=== PATIENT | female | born 1960 | race Caucasian/White ===

== ENCOUNTER 2020-01-19 09:40 | Observation (INO) | payer BC ==
[~2020-01-19] VITALS: Ht 162.6 cm; Wt 89.9 kg
[~2020-01-19 09:40] MED LIST: BACITRACIN OINT 500U/GM, 15 GM ONE; EPINEPHRINE TOPICAL SOLN 1 MG/ML, 30ML ONE; LIDOCAINE 1%-EPI 1:100K, 20ML ONE
[2020-01-19] MEDS ORDERED: CHLORHEXIDINE 15 ML UDC MM STA (10:12)
[2020-01-19] MEDS ORDERED: LACTATED RINGERS 1,000 ML IV SCH (10:12)
[2020-01-19 10:15] VITALS: BP 141/79
[2020-01-19] MEDS ORDERED: CALC-725 PO (10:20)
[2020-01-19] MEDS ORDERED: CYAN250013 PO (10:20)
[2020-01-19] MEDS ORDERED: LEVO112T2 PO (10:20)
[2020-01-19] MEDS ORDERED: MIDAZOLAM 1 MG/ML, 2ML ONE (11:49)
[2020-01-19] MEDS ORDERED: FENTANYL PF 100 MCG/2ML ONE ×4 (11:49→19:44)
[2020-01-19] MEDS ORDERED: ROCURONIUM 10MG/ML,5ML ONE (11:51)
[2020-01-19] MEDS ORDERED: FENTANYL PF 100 MCG/2ML IV PRN ×2 (12:30→19:00)
[2020-01-19] MEDS ORDERED: ACETAMINOPHEN 325 MG TABLET PO PRN ×3 (12:30→23:30)
[2020-01-19] MEDS ORDERED: OXYcodone 5 MG/5 ML ORAL.SOL UDC PO PRN ×2 (12:30→19:00)
[2020-01-19] MEDS ORDERED: LORazepam 2 MG/ML, 1ML IVPush PRN (12:30)
[2020-01-19] MEDS ORDERED: PROMETHAZINE 25 MG/ML, 1ML IVPush PRN (12:30)
[2020-01-19] MEDS ORDERED: ONDANSETRON 2MG/ML, 2ML IVPush PRN (12:30)
[2020-01-19] MEDS ORDERED: PROMETHAZINE 25 MG SUPP PR PRN (12:30)
[2020-01-19] MEDS ORDERED: DEXAMETHASONE 4 MG/ML, 1ML ONE (13:25)
[2020-01-19] MEDS ORDERED: GLYCOPYRROLATE 0.2MG/1ML, 5ML ONE (13:25)
[2020-01-19] MEDS ORDERED: ONDANSETRON 2MG/ML, 2ML ONE (13:25)
[2020-01-19] MEDS ORDERED: SUCCINYLCHOLINE 20 MG/ML, 10ML ONE (13:25)
[2020-01-19] MEDS ORDERED: NEOSTIGMINE 1 MG/ML, 10ML ONE (13:25)
[2020-01-19] MEDS ORDERED: PROPOFOL 10 MG/ML, 20ML ONE (13:25)
[2020-01-19] MEDS ORDERED: CEFAZOLIN 1,000 MG ONE (13:25)
[2020-01-19] MEDS ORDERED: ACETAMINOPHEN 325 MG TABLET ONE (14:07)
[2020-01-19] MEDS ORDERED: ACETAMINOPHEN 650 MG/20.3 ML UDC ONE (14:07)
[2020-01-19] MEDS ORDERED: FLUORESCEIN SODIUM 500 MG/5 ML ONE ×2 (16:25→18:14)
[2020-01-19] MEDS ORDERED: OXYMETAZOLINE NASAL SPRAY 0.05%, 15ML ONE ×2 (16:46→17:40)
[2020-01-19] MEDS ORDERED: OXYMETAZOLINE NASAL SPRAY 0.05%,30ML NAS ONE (17:00)
[2020-01-19] MEDS ORDERED: LABETALOL 5MG/ML, 20ML ONE (17:46)
[2020-01-19] MEDS ORDERED: LIDOCAINE 1%-EPI 1:100K, 20ML ONE (18:14)
[2020-01-19] MEDS ORDERED: EPINEPHRINE TOPICAL SOLN 1 MG/ML, 30ML ONE (18:14)
[2020-01-19] MEDS ORDERED: LIDOCAINE 1%-EPI 1:100K, 20ML INFIL ONE (18:28)
[2020-01-19] MEDS ORDERED: PROMETHAZINE 25 MG/ML, 1ML IV PRN (19:00)
[2020-01-19] MEDS ORDERED: KETOROLAC 30 MG/1 ML IV PRN (19:00)
[2020-01-19] MEDS ORDERED: LABETALOL 5MG/ML, 20ML IV PRN (19:00)
[2020-01-19] MEDS ORDERED: DIAZEPAM 5 MG/ML, 2ML IVPush PRN (19:00)
[2020-01-19] MEDS ORDERED: ALBUTEROL SULFATE 2.5 MG/3 ML NPPB PRN (19:00)
[2020-01-19] MEDS ORDERED: HYDROmorphone 1 MG/ML, 1ML INJ IVPush PRN (19:00)
[2020-01-19] MEDS ORDERED: MEPERIDINE/PF 25MG/0.5ML IVPush PRN (19:00)
[2020-01-19] MEDS ORDERED: hydrALAzine 20 MG/ML, 1ML IV PRN (19:00)
[2020-01-19] MEDS ORDERED: hydrALAzine 20 MG/ML, 1ML ONE (19:44)
[2020-01-19] MEDS ORDERED: OXYcodone 5 MG/5 ML ORAL.SOL UDC ONE (20:00)
[2020-01-19] MEDS ORDERED: ONDANSETRON 2MG/ML, 2ML IV PRN (23:00)
[2020-01-19] MEDS ORDERED: HYDROcodone/APAP 5/325 TABLET PO PRN (23:00)
[2020-01-20 01:46] VITALS: BP 103/69
[2020-01-20] MEDS ORDERED: CEFAZOLIN PMX 2GM/50ML 50 ML IVPB SCH (02:00)
[2020-01-20] MEDS ORDERED: CEPH-368 PO (05:52)
[2020-01-20] MEDS ORDERED: LEVOTHYROXINE 112 MCG TABLET PO SCH (06:00)
[2020-01-20 06:31] VITALS: BP 105/64
[2020-01-20 07:27] LABS: BASOPHILS # (AUTO) 0.06 x10^3/uL (0-0.1); BASOPHILS % (AUTO) 1 % (0-1); EOSINOPHILS % (AUTO) 0 % (1-7); LYMPHOCYTES # (AUTO) 1.99 x10^3/uL (1-3.4); LYMPHOCYTES % (AUTO) 16 % (22-44); MD NO; MEAN CORPUSCULAR HEMOGLOBIN 29.4 pg (27.0-34.8); MEAN CORPUSCULAR HGB CONC 33.4 g/dL (32.4-35.8); MEAN CORPUSCULAR VOLUME 88.1 fL (80-100); MEAN PLATELET VOLUME 7.4 fL (7.4-10.4); MONOCYTES # (AUTO) 0.81 x10^3/uL (0.2-0.8); MONOCYTES % (AUTO) 7 % (2-9); NEUTROPHILS # (AUTO) 9.32 x10^3/uL (1.8-6.8); NEUTROPHILS % (AUTO) 77 % (42-75); PLATELET COUNT 312 x10^3/uL (130-400); RED BLOOD COUNT 4.39 x10^6/uL (3.82-5.3); RED CELL DISTRIBUTION WIDTH 13.1 % (9.6-15.2)
[2020-01-20 08:01] LABS: INTERNATIONAL NORMALIZED RATIO 0.99 (0.93-1.1); PROTHROMBIN TIME 10.5 Seconds (9.6-11.5)
== END 2020-01-20 09:40 | disposition home or self-care (01) ==
LOC: OUT 09:40 → 3N 20:50 → OUT 22:44 → 3N 22:45 → DCLOUNGE 01-20 09:28
PROVIDERS: ADMIT Otolaryngology; ATTEND Otolaryngology
DX: J32.9 Chronic sinusitis, unspecified (principal); J34.2 Deviated nasal septum; R04.0 Epistaxis; H92.02 Otalgia, left ear; G43.909 Migraine, unspecified, not intractable, without status migrainosus; Z90.710 Acquired absence of both cervix and uterus
CPT/HCPCS: 30520; 31020; 31201; 31238; 36415; 85025; 85610; 85730; 87635; 88304; 88311; 96365; G0378; J0330; J0360; J0690; J1100; J2250; J2405; J2704; J2710; J3010; J3490; J7120

== ENCOUNTER 2020-02-02 05:22 | Day surgery (SDC) | payer BC ==
[~2020-02-02] VITALS: Ht 162.6 cm; Wt 89.2 kg
[~2020-02-02 05:22] MED LIST changes: -BACITRACIN OINT 500U/GM, 15 GM ONE; +CALC-725 PO; +CEPH-368 PO; +CYAN250013 PO; -EPINEPHRINE TOPICAL SOLN 1 MG/ML, 30ML ONE; +LEVO112T2 PO; -LIDOCAINE 1%-EPI 1:100K, 20ML ONE
[2020-02-02] MEDS ORDERED: LACTATED RINGERS 1,000 ML IV SCH (06:07)
[2020-02-02 06:28] VITALS: BP 127/88
[2020-02-02] MEDS ORDERED: LIDOCAINE-MPF 1%, 2ML INFIL ONE (06:30)
[2020-02-02] MEDS ORDERED: OXYMETAZOLINE NASAL SPRAY 0.05%, 15ML ONE (06:30)
[2020-02-02] MEDS ORDERED: CHLORHEXIDINE 15 ML UDC MM ONE (06:30)
== END 2020-02-02 08:05 | disposition home or self-care (01) ==
LOC: OUT 05:22
PROVIDERS: ATTEND Otolaryngology
DX: J32.0 Chronic maxillary sinusitis (principal); Z11.59 Encounter for screening for other viral diseases; J32.8 Other chronic sinusitis; E03.9 Hypothyroidism, unspecified; Z88.1 Allergy status to other antibiotic agents; Z79.899 Other long term (current) drug therapy
CPT/HCPCS: 87635